=== PATIENT | female | born 2005 | race Caucasian/White ===

== ENCOUNTER 2024-08-03 17:51 | Emergency (ER) | payer OTHER, SELFPAY ==
--- OUTSIDE RECORDS SUMMARY | 2024-08-03 17:53 | XMS_ITS | Encounter Summary ---
Author Organization [facility] and [facility] Address [address] [place] [address] Care Team Providers Care Rides Supervisor Name Role Phone Establish, Need To MD Primary Care Provider [phone]- [phone] Encounter Details Date Type Department Care Team (Late st Contact Info) Description 06/22/2024 Interface Meds [place] - Ophthalmology [address] [place] [address] Jaci Heller MD [facility] [place] [address] Social History Tobacco Use Types Packs/Day Years Used Date Smoking Tobacco: Never Smokeless Tobacco: Never Comments No Sex and Gender Information Value Date Recorded Sex Assigned at Not on file Legal Sex Female 11:14 AM CDT Gender Identity Not on file Sexual Orientation Not on file documented as of this encounter Plan of Treatment Upcoming Encounters Date Type Department Care Team (Late st Contact Info) Description 08/12/2024 7:00 AM DOUGH PANNER Office Visit [place] - Social IQ (Social Influence Quotient) Health [address] [place] [address] Dana Arteaga PA-C [facility] [place] [address] 08/17/2024 3:00 PM DOUGH PANNER Office Visit [place] - Ophthalmology [address] [place] [address] Jaci Heller MD [address] [place] [address], [place] [id number] Cary Duarte, OD [address] [place], [place] [phone] Virginia Natarajan, OD [address] [place], [place] [phone] documented as of this encounter Visit Diagnoses Not on filedocumented in this encounter Care Teams Rides Supervisor Relationship Specialty Start Date End Date Establish, Need To, [address] [place], [place] [id number] PCP - General LEGAL INTERN 05/06/24 documented as of this encounter
--- OUTSIDE RECORDS SUMMARY | 2024-08-03 17:53 | XMS_ITS | Clinical Summary ---
Author Organization [facility] and [facility] Address [facility] [place] [address] Care Team Providers Care Shale Processing Technician Name Role Phone Establish, Need To MD Primary Care Provider [phone]- [phone] Source Comments If you need additional information that is not available on Care Everywhere, please contact our Medical Records Department during business hours (Saturday - Saturday, 8 am - 5 pm) at . During nonbusiness hours, please contact our Trauma and Emergency Center at .[facility] and [facility] Allergies Active Allergy Reactions Criticality Noted Date Comments Norgestimate-Ethinyl Estradiol Hives High 08/13 Progesterone Hives High 11/30/2022 Medications * Medications may not be up to date as of this document. Always verify current medications with the patient. adapalene 0.3 % (DIFFERIN) 0.3 % gel Apply to the face at bedtime. 04/04/2023 Active dextroamphetami ne-amphetamine (ADDERALL XR) 15 mg extended release capsule Take 1 Capsule (15 mg) by mouth daily Active glycopyrrolate (ROBINUL) 2 mg tablet Take 0.5 Tablets (1 mg) by mouth 2 times daily 07/01/2023 Active spironolactone (ALDACTONE) 100 mg tablet Take 1 Tablet (100 mg) by mouth in the morning. 04/04/2023 Active cephALEXin (KEFLEX) 500 mg capsule Take 1 Capsule (500 mg) by mouth 3 times daily for 10 days 30 Capsule 08/02/2024 Active mupirocin (BACTROBAN) 2 % ointment Apply to skin 2 times daily for 10 days 30 g 08/02/2024 Active Active Problems No known active problems Encounters Date Type Department Care Team Description 08/02/2024 4:01 PM EXTRA GANG SUPERVISOR - 08/02/2024 4:26 PM EXTRA GANG SUPERVISOR Hospital Encounter [place] - Urgent Care [address] [place] [address] Mark Cote MD Discharge Disposition: Discharge Home 08/02/2024 Interface [facility] [address] [place] [address] Listed, Doctor Not 07/30/2024 2:00 PM EXTRA GANG SUPERVISOR Office Visit [place] - Ophthalmology [address] [place] [address] Jaci Heller MD McKuras, Rachel, OD 07/30/2024 Interface Meds [place] - Ophthalmology [address] [place] [address] Jaci Heller MD 07/01/2024 7:00 AM EXTRA GANG SUPERVISOR Office Visit [facility] [employer] [address] [address] Dana Arteaga PA-C Injury of head, subsequent encounter (Primary Dx); Visual disturbances; Post-concussion headache 07/01/2024 Interface [facility] [address] [address] Dana Arteaga PA-C 06/22/2024 1:00 PM EXTRA GANG SUPERVISOR Office Visit [place] - Ophthalmology [address] [place] [address] Jaci Heller MD Reierson, Kristen M, Virginia Nolen, OD 06/22/2024 Interface Meds [place] - Ophthalmology [address] [place] [address] Jaci Heller MD 06/15/2024 7:40 AM EXTRA GANG SUPERVISOR Office Visit [place] - Ophthalmology [address] [place] [address] Emplify, Ip Non-Employed Physician, Virginia Garnett, CANDI 05/20/2024 7:30 AM CDT Office Visit [facility] [employer] [address] [address] Dana Arteaga PA-C Injury of head, subsequent encounter (Primary Dx); Visual disturbances 05/20/2024 Interface [facility] [address] [address] Dana Arteaga PA-C 05/06/2024 1:30 PM CDT Office Visit [facility] [employer] [address] [address] Dana Arteaga PA-C Injury of head, initial encounter (Primary Dx); Dizziness; Nystagmus of right eye 05/06/2024 Interface [facility] [employer] [address] [address] Dana Arteaga PA-C from Last 3 Months Social History Tobacco Use Types Packs/Day Years Used Date Smoking Tobacco: Never Smokeless Tobacco: Never Tobacco Cessation:Counseling Given: Not Answered Comments No Sex and Gender Information Value Date Recorded Sex Assigned at Not on file Legal Sex Female 11:14 AM CDT Gender Identity Not on file Sexual Orientation Not on file Obstetrics History Last Filed Vital Signs Vital Sign Reading Time Taken Comments Blood Pressure 130/91 08/02/2024 4:04 PM EXTRA GANG SUPERVISOR Pulse 100 08/02/2024 4:04 PM EXTRA GANG SUPERVISOR Temperature 37 C (98.6 F) 08/02/2024 4:04 PM EXTRA GANG SUPERVISOR Respiratory Rate 16 08/02/2024 4:04 PM EXTRA GANG SUPERVISOR Oxygen Saturation 97% 08/02/2024 4:04 PM EXTRA GANG SUPERVISOR Inhaled Oxygen Concentration - - Weight - - Height - - Body Mass Index - - Plan of Treatment Upcoming Encounters Date Type Department Care Team (Late st Contact Info) Description 08/12/2024 7:00 AM EXTRA GANG SUPERVISOR Office Visit [facility] [employer] [address] [address] Dana Arteaga PA-C [address] [place], [place] [phone] 08/17/2024 3:00 PM EXTRA GANG SUPERVISOR Office Visit [place] - Ophthalmology [address] [place] [address] Jaci Heller MD [address] [place], [place] [phone] [place] [address] [place] [phone] Virginia Natarajan, OD [facility] [place] [address] Health Maintenance Due Date Last Done Comments CREATININE/EGFR 2003 POTASSIUM 2003 SODIUM 2003 DEPRESSION/ANXIETY PHQ4 2015 CHLAMYDIA SCREEN 2019 CERVICAL CANCER SCREENING 2021 LIPID SCREEN 2021 WELLNESS VISIT 2021 PERTUSSIS 2022 COVID-19 Vaccine ( season) 2024 04/22/2021, 03/25/2021 Influenza Vaccine (#1) 2024 7, 08/04/2016, 06/02/2012, Additional history exists DTaP/Tdap/Td Vaccine (7 - Td or Tdap) 01/04/2025 01/04/2015, 02/23/2008, 06/19/2004, Additional history exists RSV Vaccines (1 - 1-dose 75+ series) 2078 Hepatitis B Vaccine Completed 2003, 2003, 2003 Pneumococcal Vaccine: Pediatrics (0 to 5 Years) and At-Risk Patients (6 to 49 Years) Aged Out 06/19/2004, 2003, 2003, Additional history exists No longer eligible based on patient's age to complete this topic POLIO (IPV) Vaccine Completed 02/23/2008, 2003, 2003, Additional history exists HPV Vaccine Completed 07/09/2017, 12/01/2016 [facility] [employer] WORK[employer] COMPENSATION Care Teams Shale Processing Technician Relationship Specialty Start Date End Date Establish, Need To, [address] [place] [address] PCP - General SHALE MINER BLASTING 05/06/24
--- OUTSIDE RECORDS SUMMARY | 2024-08-03 17:53 | XMS_ITS | Encounter Summary ---
Author Organization [employer] Address [address] [place] [address] Care Team Providers Care Kitchen And Bath Designer Name Role Phone Bernadette Ridley APRN, CNP Primary Care Provider + Reason for Visit * Reason Onset Date Comments Refill 07/04/2024 amphetamine-dext roamphetamine XR (ADDERALL XR) 15 MG 24 hour release capsule Encounter Details Date Type Department Care Team (Late st Contact Info) Description 07/04/[address] Medicine [id number] [place] [phone] Bernadette Ridley APRN, DONNA [address] [place] [address] Refill (amphetamine-dextroamphe tamine XR (ADDERALL XR) 15 MG 24 hour release capsule) Social History Tobacco Use Types Packs/Day Years Used Date Smoking Tobacco: Never Passive Smoke Exposure: Never Smokeless Tobacco: Never Alcohol Use Standard Drinks/Week Comments Not Currently 2 (1 standard drink = 0.6 oz pur e alcohol) AUDIT-C Answer Date Recorded Q1: How often do you have a drink containing alc ohol? Never 05/12/2020 Average Number of Drinks Not on file 020 Frequency of Binge Drinking Not on file 04/28 PHQ-2 Answer Date Recorded PHQ-2 Score 0 03/12/2024 Hunger Vital Sign Answer Date Recorded Within the past 12 months, y ou worried that your food would run out before you got the money to buy more. Never true 03/12/20 24 Within the past 12 months, t he food you bought just didn't last and you didn't have money to get more. Never true 03/12/2024 PRAPARE - Transportation Answer Date Re corded In the past 12 months, has l ack of transportation kept you from medical appointments or from getting medications? No 02/26 In the past 12 months, has l ack of transportation kept you from meetings, work, or from getting things needed for daily living? No 03/12/2024 Housing Stability Vital Sign Answer Antolin e Recorded In the last 12 months, was t here a time when you were not able to pay the mortgage or rent on time? No 03/12/2024 In the past 12 months, how m any times have you moved where you were living? 0 03/12/2024 At any time in the past 12 m [facility], were you homeless or living in a mcfp (including now)? No 03/12/2024 Sex and Gender Information Value Date Recorded Sex Assigned at Not on file Gender Identity Not on file Sexual Orientation Not on file documented as of this encounter Nursing Notes * Shweta Hedrick - 07/06/2024 9:37 AM CST Medication Refill - Due for Visit Refill was approved for 30 day supply and patient is due to be seen in the next 30 days. Called patient, was: Successful in reaching patient: We recently received a refill request for one of your medications. To continue managing your medication refills, your clinician would like to see you for a(n): Patient is due for: Video/Office Visit Patient scheduled appointment on: 07/16/24 Frontline Action: Close encounter. Refill has already been approved. OR SALES OPERATIONS MANAGER * Bernadette Ridley APRN, LAW WRITER - 07/06/2024 7:54 AM CST A one-month supply of Adderall was refilled. * ArcadioByron arshad X[facility] - 07/04/2024 10:42 AM CST amphetamine-dextroamphetamine XR (ADDERALL XR) 15 MG 24 hour release capsule Medication started: 10/16/2022 Last ordered by BERNADETTE RIDLEY: 05/11/2024 (54 days ago) QTY: 30, Refills: 0, Sig: take 1 capsule (15 mg) by mouth daily for 30 days. 3 of 3 do not start before may 11, 2024. (changed) -> The requested strength (3.75-3.75-3.75-3.75 mg extended release oral capsule) was last ordered on 05/11/2024. The patient is taking 2.5-2.5-2.5-2.5 mg extended release oral capsule as of 03/07/2024. -> The most recent order on 06/10/2024. -> Unable to determine if sig has changed, review required. -> Medication cannot be delegated. Last qualifying visit: 03/12/2024 (with BERNADETTE RIDLEY) Next scheduled visit: 07/16/2024 (with BERNADETTE RIDLEY) [employer] Embedded Refills, Reference: [id number], 07/04/2024 10:42:32 AM Tin CANALES: YASMIN Refill Centralized Services - Primary Care [[id number]] ([id number]) OR SALES OPERATIONS MANAGER * Jadiel Refillwizard Xrwcomm - 07/04/2024 10:42 AM CST No Careplan note found by [facility]. OR SALES OPERATIONS MANAGER * Romina Corbin - 07/04/2024 10:41 AM CST Medications - Refill Request Name of prescribing clinician: Bernadette Ridley APRN, LAW WRITER Additional comments (related to the above concern): Pt is out of medication. For this refill, patient would like it filled at the pharmacy listed in Medication Management. If there are questions regarding your request, what is your preferred method of communication? Phone Call. Is it okay to leave a detailed message on your voicemail? Yes Is there anything else I can help you with today? OR SALES OPERATIONS MANAGER documented in this encounter Plan of Treatment Not on file documented as of this encounter Visit Diagnoses Diagnosis ADD (attention deficit disorder) without hyperactivity Attention deficit disorder without mention of hyperactivity documented in this encounter Care Teams Kitchen And Bath Designer Relationship Specialty Start Date End Date Bernadette Ridley APRN, LAW WRITER [address] [place] [address] PCP - General Nurse Practitioner 10/09/22 documented as of this encounter
--- OUTSIDE RECORDS SUMMARY | 2024-08-03 17:53 | XMS_ITS | Encounter Summary ---
Author Organization [employer] [facility] Address [address] [place] [address] Care Team Providers Care Beehive Kiln Supervisor Name Role Phone Establish, Need To MD Primary Care Provider [phone] Encounter Details Date Type Department Care Team (Late st Contact Info) Description 08/02/2024 Interface Meds [facility] [address] [place] [address] Listed, [place] [address] Social History Tobacco Use Types Packs/Day Years [...] st Contact Info) Description 08/12/2024 7:00 AM ADJUNCT TEACHER Office Visit [place] - Occupational Health [address] [place] [address] Dana Arteaga, PA-C [facility] [place] [address] 08/17/2024 3:00 PM ADJUNCT TEACHER Office Visit [place] - Ophthalmology [address] [place] [address] Jaci Heller MD [address] [place] [address] Cary Duarte OD [address] [place] [address] Virginia Natarajan, OD [address] [place], [place] [phone] documented as of this encounter Visit Diagnoses Not on filedocumented in this encounter Care Teams Beehive Kiln Supervisor Relationship Specialty Start Date End Date Establish, Need To, [address] [place], [place] [phone] PCP - General MANAGER OF ENVIRONMENTAL SERVICES 05/06/24 documented as of this encounter
--- OUTSIDE RECORDS SUMMARY | 2024-08-03 17:53 | XMS_ITS | Encounter Summary ---
Author Organization [facility] Address [address] [place] [address] Care Team Providers Care Arc Trimmer Name Role Phone Bernadette Ridley APRN, CNP Primary Care Provider + Reason for Visit * Reason Onset Date Comments Video Visit 07/16/2024 Encounter Details Date Type Department Care Team (Latest Contact Info) Description 07/16/2024 9:00 AM [facility] Telemedicine [place] [address] [place] [address] [place] [phone] Bernadette Ridley APRN, CNP [address] [place] [address] ADD (attention deficit disorder) without hyperactivity (Primary Dx) Social History Tobacco Use Types Packs/Day Years [...] any time in the past 12 m [facility], were you homeless or living in a alf (including now)? No 03/12/2024 Sex and Gender Information Value Date Recorded Sex Assigned at Not on file Gender Identity Not on file Sexual Orientation Not on file documented as of this encounter Progress Notes * Bernadette Ridley, STAPLER HAND, CLINICAL STATISTICS MANAGER - 07/16/2024 9:00 AM CST Subjective: Today's visit with Meenakshi was conducted as a scheduled video visit for follow-up ADHD. She has been taking Adderall for a number of years. The dose was increased from 10 mg to 15 mg in February. She is happy with the dose. She no longer has an afternoon crash and it is helping her complete her school work. She has no side effects including increased anxiety, insomnia, palpitations, or reduced appetit e. Objective: There were no vitals taken for this visit. We are unable to connect via video so a phone visit was done. Assessment/Plan: ADD (attention deficit disorder) without hyperactivity Adderall refilled at current dosage. She will call or send a Epuls message in 3 months for an additional three-month supply. Follow-up visit required in 6 months for ongoing refills. - amphetamine-dextroamphetamine XR (ADDERALL XR) 15 MG 24 hour release capsule; Take 1 Capsule (15 mg) by mouth daily for 30 days. 1 of 3 Do not start before August 05, 2024. - amphetamine-dextroamphetamine XR (ADDERALL XR) 15 MG 24 hour release capsule; Take 1 Capsule (15 mg) by mouth daily for 30 days. 2 of 3 Do not start before September 04, 2024. - amphetamine-dextroamphetamine XR (ADDERALL XR) 15 MG 24 hour release capsule; Take 1 Capsule (15 mg) by mouth daily for 30 days. 3 of 3 Do not start before October 04, 2024. Bernadette Ridley APRN, DONNA RVISOR GRINDING documented in this encounter Plan of Treatment Not on file documented as of this encounter Visit Diagnoses Diagnosis ADD (attention deficit disorder) without hyperactivity- Primary Attention deficit disorder without mention of hyperactivity documented in this encounter Care Teams Arc Trimmer Relationship Specialty Start Date End Date Bernadette Ridley APRN, CLINICAL STATISTICS MANAGER [address] [place] [address] PCP - General Nurse Practitioner 10/09/22 documented as of this encounter
--- OUTSIDE RECORDS SUMMARY | 2024-08-03 17:53 | XMS_ITS | Encounter Summary ---
Author Organization [facility] and [facility] Address [facility] [place] [phone] Care Team Providers Care Trade Manager Name Role Phone Establish, Need To MD Primary Care Provider [phone]- [phone] Reason for Visit * Reason Comments Skin Problem Pt presents with com plaints of skin problem/draining lesions noted throughout body, progressively worse x 3 days Encounter Details Date Type Department Care Team (Latest Contact Info) Description 08/02/2024 4:01 PM SUIT MAKER - 08/02/2024 4:26 PM SUIT MAKER Hospital Encounter [place] - Urgent Care [address] [place] [address] Mark Cote MD [address] [place] [address] Discharge Disposition: Discharge Home Social History Tobacco Use Types Packs/Day Years Used Date Smoking Tobacco: Never Smokeless Tobacco: Never Comments No Sex and Gender Information Value Date Recorded Sex Assigned at Not on file Legal Sex Female 11:14 AM CDT Gender Identity Not on file Sexual Orientation Not on file documented as of this encounter Last Filed Vital Signs Vital Sign Reading Time Taken Comments Blood Pressure 130/91 08/02/2024 4:04 PM SUIT MAKER Pulse 100 08/02/2024 4:04 PM SUIT MAKER Temperature 37 C (98.6 F) 08/02/2024 4:04 PM SUIT MAKER Respiratory Rate 16 08/02/2024 4:04 PM SUIT MAKER Oxygen Saturation 97% 08/02/2024 4:04 PM SUIT MAKER Inhaled Oxygen Concentration - - Weight - - Height - - Body Mass Index - - documented in this encounter Discharge Instructions * Attachments The following attachments cannot be sent through Care Everywhere. * Adult Advisor: Folliculitis (Finnish) documented in this encounter Medications at Time of Discharge adapalene 0.3 % (DIFFERIN) 0.3 % gel Apply to the face at bedtime. 04/04/2023 cephALEXin (KEFLEX) 500 mg capsule Take 1 Capsule (500 mg) by mouth 3 times daily for 10 days 30 Capsule 08/02/2024 08/12/2024 dextroamphetamine -amphetamine (ADDERALL XR) 15 mg extended release capsule Take 1 Capsule (15 mg) by mouth daily glycopyrrolate (ROBINUL) 2 mg tablet Take 0.5 Tablets (1 mg) by mouth 2 times daily 07/01/2023 mupirocin (BACTROBAN) 2 % ointment Apply to skin 2 times daily for 10 days 30 g 08/02/2024 08/12/2024 spironolactone (ALDACTONE) 100 mg tablet Take 1 Tablet (100 mg) by mouth in the morning. 04/04/2023 documented as of this encounter Ordered Prescriptions Prescription Sig Dispense Quantity Refills Last Filled Start Date End Date mupirocin (BACTROBAN) 2 % ointment Apply to skin 2 times daily for 10 days 30 g 08/02/2024 5 cephALEXin (KEFLEX) 500 mg capsule Take 1 Capsule (500 mg) by mouth 3 times daily for 10 days 30 Capsule 08/02/2024 5 documented in this encounter Discharge Disposition Disposition Code Departure Means Destination Discharge Home documented in this encounter ED Notes * Mark Cote MD - 08/02/2024 3:57 PM CST Lucy Valencia [phone] Assessment & ED/UC Department Course Final diagnoses: [L73.9] Folliculitis I believe this is a folliculitis. I treated her with Keflex 5 mg 3 times a day for 10 days along with topical Bactroban. She wondered about chickenpox but I do not think that is the case. There are no clear vesicles but rather more purulent vesicles. She also has had chickenpox at age 2 making a recurrence unlikely. If there is slow steady resolution no follow-up is needed but if she worsens she will return Disposition: Discharged Follow-up Appointment/Instructions/Discharge Medication Summary No follow up. Medications At Discharge Start Taking cephALEXin 500 mg capsule Commonly known as: KEFLEX 500 mg, Oral, 3 TIMES DAILY mupirocin 2 % ointment Commonly known as: BACTROBAN Topical, 2 TIMES DAILY History of Present Illness Lucy is a 19-year-old who presents today for evaluation of a rash. She has a red pustular rash that started on her face and scalp and nose extending to her back chest and abdomen. It is fairly itchy and she is taking antihistamines. They have pustules overlying and she drained some weight material from them. She is not systemically ill with a fever or chills. Relevant ROS are documented within the HPI above. Physical Exam Initial Vital Signs Repeat (last) Vital Signs BP: 130/91 Pulse : 100 Temp: 37 ??C (98.6 ??F) Resp Rate: 16 O2 Sat (%): 97 % . Physical Exam Vitals and nursing note reviewed. Constitutional: Appearance: Normal appearance. Skin: Comments: Skin exam shows erythema with white pustules overlying many of the lesions on the scalp neck chest abdomen and back most consistent with folliculitis Neurological: Mental Status: She is alert. Procedure E / M Documentation Medical Decision Making No orders to display Labs Reviewed - No data to display MAKER documented in this encounter Plan of Treatment Upcoming Encounters Date Type Department Care Team (Late st Contact Info) Description 08/12/2024 7:00 AM SUIT MAKER Office Visit [place] - Occupational Health [address] [place] [address] Dana Arteaga PA-C [address] [place] [address] 08/17/2024 3:00 PM SUIT MAKER Office Visit [place] - Ophthalmology [address] [place], [place] [phone] aJci Heller MD [address] [place] [phone] Cary Duarte, OD [address] [place] [address] Virginia Natarajan, OD [address] [place] [address] documented as of this encounter Visit Diagnoses Diagnosis Folliculitis- Primary Other specified disease of hair and hair follicles documented in this encounter Care Teams Trade Manager Relationship Specialty Start Date End Date Establish, Need To, [address] [place] [address] PCP - General FINAL FINISHER 05/06/24 documented as of this encounter
--- OUTSIDE RECORDS SUMMARY | 2024-08-03 17:53 | XMS_ITS | Encounter Summary ---
Author Organization [employer] [facility] Address [facility] [place] [address] Care Team Providers Care Health Club Manager Name Role Phone Establish, Need To MD Primary Care Provider [phone] Reason for Visit * Reason Comments Work Comp Re-check Encounter Details Date Type Department Care Team (Late st Contact Info) Description 07/01/2024 7:00 AM MOLD PRESS OPERATOR Office Visit [address] [address] Dana Arteaga PA-C [address] [place] [address] Injury of head, subsequent encounter (Primary Dx); Visual disturbances; Post-concussion headache Social History Tobacco Use Types Packs/Day Years Used Date Smoking Tobacco: Never Smokeless Tobacco: Never Comments No Sex and Gender Information Value Date Recorded Sex Assigned at Not on file Legal Sex Female 11:14 AM CDT Gender Identity Not on file Sexual Orientation Not on file documented as of this encounter Progress Notes * Dana Arteaga PA-C - 07/01/2024 7:00 AM CST Lucy Valencia [phone] OCCUPATIONAL MEDICINE - [place] July 01, 2024 Subjective Lucy Valencia is a 19 y.o. female. Chief Complaint Patient presents with Work Comp Re-check HPI Employer: [employer] On 04/24/2024 she was unloading the truck early in the morning. She was in the back of the truck where the lighting was minimal. When she turned around a large box fell from the top shelf and hit her in the back of the head. The box hit hard enough that it knocked her glasses off of her face. She states that she went out of the truck but continued to work. As the days went on, she started to develop headaches. She states that she rarely ever gets headaches. The headaches became miserable and so went to urgent care on 05/01/2024. A head CT scan was done which was negative for bleed. SINCE THE LAST VISIT: She notes that her headaches are improving. She has days without headaches. Concentration and fatigue are slowly improving. She was seen in TBI optometry and was noted to have accommodative insufficiency, saccadic deficiency, pursuit deficiency. She has started vision therapy x 1 and has home vision exercises to do. She states that the dizziness is only with sudden position change but feels that it is slowly improving. She states that she finally feels that she is starting to feel better. No past medical history on file. Current Medications Medication Sig adapalene 0.3 % (DIFFERIN) 0.3 % gel Apply to the face at bedtime. dextroamphetamine-amphetamine (ADDERALL XR) 15 mg extended release capsule Take 1 Capsule (15 mg) by mouth daily glycopyrrolate (ROBINUL) 2 mg tablet Take 0.5 Tablets (1 mg) by mouth 2 times daily spironolactone (ALDACTONE) 100 mg tablet Take 1 Tablet (100 mg) by mouth in the morning. Allergies Allergen Reactions Norgestimate-Ethinyl Estradiol Hives Progesterone Hives Social History Socioeconomic History Marital status: Single Spouse name: Not on file Number of children: Not on file Years of education: Not on file Highest education level: Not on file Occupational History Not on file Tobacco Use Smoking status: Never Smokeless tobacco: Never Vaping Use Vaping status: Never Used Substance and Sexual Activity Alcohol use: Not on file Drug use: Not on file Review of Systems Constitutional: Positive for fatigue. HENT: Negative for ear discharge, ear pain, hearing loss and tinnitus. Eyes: Positive for visual disturbance. Negative for photophobia and pain. Gastrointestinal: Negative for nausea and vomiting. Musculoskeletal: Negative for back pain, neck pain and neck stiffness. Skin: Negative for wound. Neurological: Positive for headaches. Negative for dizziness, syncope and light-headedness. Psychiatric/Behavioral: Positive for decreased concentration. Negative for sleep disturbance. The patient is not nervous/anxious. Objective Vital signs: There were no vitals taken for this visit. Physical Exam General appearance: alert, cooperative, no distress Head: normocephalic, without obvious abnormality, atraumatic Eyes: PERRL, extraocular movements intact, Assessment and Plan: Assessment 1. Injury of head, subsequent encounter 2. Visual disturbances 3. Post-concussion headache Continue with vision therapy as scheduled as well as home exercises Continue with good sleep hygiene / proper diet/ hydration / limit caffeine and alcohol. OTC ibuprofen / acetaminophen as needed for headache. Return to work with the following restrictions: no lift > 20-25#, no climb ( may use a one step step stool), slow position changes. A work status form is completed and she is given a copy. Follow up in one month Total Time on encounter: 30 minutes were spent on one or more of the following: discussion with patient, history, exam, coordinating care, treatment goals, record review, documenting clinical information, and/or data review. This evaluation was performed under the direct supervision of Dr. Lizama who was available for consult. Dana Arteaga PA-C PRESS OPERATOR documented in this encounter Plan of Treatment Upcoming Encounters Date Type Department Care Team (Late st Contact Info) Description 08/12/2024 7:00 AM MOLD PRESS OPERATOR Office Visit [facility] [address] [place] [address] Dana Arteaga PA-C [address] [place] [address] 08/17/2024 3:00 PM MOLD PRESS OPERATOR Office Visit [facility] - Ophthalmology [address] [place] [address] Jaci Heller MD [address] [place] [address] Cary Duarte OD [address] [place] [address] Virginia Natarajan, OD [address] [place], [place] [id number] documented as of this encounter Visit Diagnoses Diagnosis Injury of head, subsequent encounter- Primary Visual disturbances Unspecified visual disturbance Post-concussion headache Post-traumatic headache, unspecified documented in this encounter Care Teams Health Club Manager Relationship Specialty Start Date End Date Establish, Need To, [address] [place] [address] PCP - General MARINE ENGINEERING CONSULTANT 05/06/24 documented as of this encounter
--- OUTSIDE RECORDS SUMMARY | 2024-08-03 17:53 | XMS_ITS | Encounter Summary ---
Author Organization [facility] Address [address], [place] [address] Care Team Providers Care Harp Repairer Name Role Phone Bernadette Ridley APRN, CNP Primary Care Provider + Encounter Details Date Type Department Care Team (Late st Contact Info) Description 05/25/2024 E-Visit [facility] - Dermatology [address] [place], [place] [id number] [place] [address] Social History Tobacco Use Types Packs/Day Years [...] any time in the past [address] [facility], were you homeless or living in a retirement (including now)? No 03/12/2024 Sex and Gender Information Value Date Recorded Sex Assigned at Not on file Gender Identity Not on file Sexual Orientation Not on file documented as of this encounter Plan of Treatment Not on file documented as of this encounter Visit Diagnoses Not on filedocumented in this encounter Care Teams Harp Repairer Relationship Specialty Start Date End Date Bernadette Ridley, MEAT APPRENTICE, MOVIE OPERATOR [address] [place] [address] PCP - General Nurse Practitioner 10/09/22 documented as of this encounter
--- OUTSIDE RECORDS SUMMARY | 2024-08-03 17:53 | XMS_ITS | Encounter Summary ---
Author Organization [facility] Address [address] [place] [address] Care Team Providers Care Unstacker Name Role Phone Establish, Need To MD Primary Care Provider [phone] [phone] Encounter Details Date Type Department Care Team (Late st Contact Info) Description 06/22/2024 1:00 PM PAINTER STRUCTURAL STEEL Office Visit [facility] - Ophthalmology [address] [place] [address] Jaci Heller MD [address] [place] [address] Jaye Duarte, OD [address] [place] [address] Virginia Natarajan, OD [address] [place] [address] Social History Tobacco Use Types Packs/Day Years Used Date Smoking Tobacco: Never Smokeless Tobacco: Never Comments No Sex and Gender Information Value Date Recorded Sex Assigned at Not on file Legal Sex Female 11:14 AM CDT Gender Identity Not on file Sexual Orientation Not on file documented as of this encounter Progress Notes * Virginia Natarajan, OD - 06/22/2024 1:00 PM CST Lucy Valencia [id number] [place] [facility] [place] June 22, 2024 Visit Number: 1 Ocular Deficiencies and Treatment Plan: Accommodative insufficiency, saccadic deficiency, pursuit deficiency Animal Control Specialist Goals: Lessen symptoms associated with TBI. Lucy reports their visual function and concurrent health-related quality of life difficulties secondary to concussion related diagnosis are stable. Current At Home Therapy: None- first therapy visit Baseline Testing Reports: Initial BIVSS Score: 53 (Date: 06/15/2024) Therapy Performed in Office Today: Lens flippers: Monocular: (-) lenses harder; up to +/-2.50 flippers each eye; harder over time Binocular: (-) lenses harder, got up to +/- 2.00 flipper but failed to sustain; +/-1.75 last able to sustain Sanet Saccades 1: Time 1: 88 sec, misses 1 Time 2: 68 sec; misses 1 [place] tracking: Time 1: 1 min 11 sec, 0 mistake Time 2: 1 min 4 sec, 0 mistake Time 3: 57 sec, 1 mistake At Home Therapy Assigned at Today's Visit 1. Pencil push ups- accommodative focus 2. Two column/row saccades 3. Lazy 8 pursuits 4. Near/far Guido Charts IMPRESSON: 1. Traumatic brain injury, without loss of consciousness, sequela (*) 2. 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 Recommend patient continues with neuro ocular therapy. Discussed that she is likely to get the best benefit from doing therapy by performing at home activities for about 20 minutes for about 5 days a week. Patient can MyChart message me if she finds the activities for at home to be too challenging, too easily, or she needs additional activities. Lucy Valencia and I talked about how the goal of therapy is to improve symptoms but that complete resolution of symptoms may not be attainable. We did talk about the endpoint of therapy being when they no longer feel that we're making improvements, I am no longer seeing improvements, or when they have complete symptom relief. We agreed that we would meet every one to two weeks for the first 3 months then do a re-evaluation to determine if further therapy is necessary. In the absence of problems, return in 2-3 weeks (she is a college student) for repeat rehabilitation visit during the window of treatment (3 months- then repeat right eye/ BIVSS/ DEM) Total Time on encounter: 60 minutes was spent reviewing goals/progress, performing therapy and assigning at home therapy plan. [place] Natarajan OD [place] License #: [id number] TER STRUCTURAL STEEL * Jaye Duarte, CANDI - 06/22/2024 1:00 PM CST I have reviewed the resident's chart, assessment, and plan and I agree with the resident's assessment and plan. JAYE DUARTE OD License #: [id number]: [id number] License # [id number] TER STRUCTURAL STEEL documented in this encounter Plan of Treatment Upcoming Encounters Date Type Department Care Team (Late st Contact Info) Description 08/12/2024 7:00 AM PAINTER STRUCTURAL STEEL Office Visit [address] [address] Dana Arteaga PAMichaelC [address] [place] [address] 08/17/2024 3:00 PM PAINTER STRUCTURAL STEEL Office Visit [facility] - Op[facility] [address] [place] [address] Jaci Heller MD [address] [place] [address] Jaye Duarte OD [address] [place] [address] Virginia Natarajan, CANDI [address] [place] [address] documented as of this encounter Visit Diagnoses Diagnosis Traumatic brain injury, without loss of consciousness, sequela (*)- Primary Accommodative insufficiency Presbyopia Saccadic deficiency Deficiencies of saccadic eye movements Deficient smooth pursuit eye movements documented in this encounter Care Teams Unstacker Relationship Specialty Start Date End Date Establish, Need To, [address] [facility] [place] [address] PCP - General SENIOR COGNOS DEVELOPER 05/06/24 documented as of this encounter
--- OUTSIDE RECORDS SUMMARY | 2024-08-03 17:53 | XMS_ITS | Encounter Summary ---
Author Organization [facility] [employer] [facility] Address [address] [place] [address] Care Team Providers Care Trials Manager Name Role Phone Establish, Need To MD Primary Care Provider [phone]- [phone] Encounter Details Date Type Department Care Team (Late st Contact Info) Description 07/30/2024 Interface [facility] - Ophthalmology [address] [place] [address] Jaci Heller MD [facility] [place] [address] Social History Tobacco Use Types Packs/Day Years [...] st Contact Info) Description 08/12/2024 7:00 AM SIDING INSTALLER Office Visit [facility] [address] [place] [address] Dana Arteaga PA-C [facility] [place] [address] 08/17/2024 3:00 PM SIDING INSTALLER Office Visit [facility] [address] [place] [address] Jaci Heller MD [address] [place] [address], [place] [phone] Cary Duarte, OD [address] [place], [place] [phone] Virginia Natarajan, OD [address] [place], [place] [phone] documented as of this encounter Visit Diagnoses Not on filedocumented in this encounter Care Teams Trials Manager Relationship Specialty Start Date End Date Establish, Need To, [address] [place], [place] [phone] PCP - General INSTRUMENT LENS GRINDER APPRENTICE 05/06/24 documented as of this encounter
--- OUTSIDE RECORDS SUMMARY | 2024-08-03 17:53 | XMS_ITS | Encounter Summary ---
Author Organization [employer] [facility] Address [address] [place] [address] Care Team Providers Care Quality Assurance Advisor Name Role Phone Establish, Need To MD Primary Care Provider [phone]- [phone] Encounter Details Date Type Department Care Team (Late st Contact Info) Description 07/01/2024 Interface [facility] [address] [place] [address] Dana Arteaga, PA-C [address] [place] [address] Social History Tobacco Use Types Packs/Day Years [...] st Contact Info) Description 08/12/2024 7:00 AM SCRIP CLERK Office Visit [facility] [address] [place] [address] Dana Arteaga, PA-C [address] [place] [address] 08/17/2024 3:00 PM SCRIP CLERK Office Visit [facility] - Ophthalmology [address] [place] [address] Jaci Heller MD [address] [place] [address] Cary Duarte, OD [address] [place] [address] Virginia Natarajan, CANDI [address] [place] [address] documented as of this encounter Visit Diagnoses Not on filedocumented in this encounter Care Teams Quality Assurance Advisor Relationship Specialty Start Date End Date Establish, Need To, [address] [place], [place] [phone] PCP - General BRUSH HOLDER INSPECTOR 05/06/24 documented as of this encounter
--- OUTSIDE RECORDS SUMMARY | 2024-08-03 17:53 | XMS_ITS | Clinical Summary ---
[facility] Organization [facility] Address [address], [place] [address] Care Team Providers Care Food Checkers And Cashiers Supervisor Name Role Phone Bernadette Ridley APRN, ART HANDLER Primary Care Provider + Source Comments You are receiving this document as you are listed as the primary care provider,follow-up provider, or the patient has been referred to you for consultation.This is in compliance with the Medicare and[facility] EHR Incentive Program,which states Providers who transition their patient to another setting of careor provider of care or refers their patient to another provider of care shouldprovide summary care record for each transition of care or referral. Nestio Allergies Active Allergy Reactions Criticality Noted Date Comments Norgestimate-Eth Estradiol Hives High 0 Progesterone Hives High 11/30/2022 Medications Medication Sig Dispensed Refills Start Date End Date Status adapalene (DIFFERIN) 0.3 % gelIndications:Acn e vulgaris Apply to the face at bedtime. 45 g 5 05/27/2024 Active spironolactone (ALDACTONE) 100 MG tabletIndications: Acne vulgaris Take one tablet every morning. 90 Tablet 3 05/27/2024 Active glycopyrrolate (ROBINUL) 2 MG tabletIndications: Hyperhidrosis Take 1 tablet (2 mg total) by mouth 2 (two) times a day for sweating. 180 Tablet 3 05/27/2024 Active amphetamine-dextro amphetamine XR (ADDERALL XR) 15 MG 24 hour release capsuleIndications :ADD (attention deficit disorder) without hyperactivity Take 1 Capsule (15 mg) by mouth daily for 30 days. 1 of 3 30 Capsule 07/06/2024 5 Active amphetamine-dextro amphetamine XR (ADDERALL XR) 15 MG 24 hour release capsuleIndications :ADD (attention deficit disorder) without hyperactivity Take 1 Capsule (15 mg) by mouth daily for 30 days. 1 of 3 Do not start before August 05, 2024. 30 Capsule 08/05/2024 5 Active amphetamine-dextro amphetamine XR (ADDERALL XR) 15 MG 24 hour release capsuleIndications :ADD (attention deficit disorder) without hyperactivity Take 1 Capsule (15 mg) by mouth daily for 30 days. 2 of 3 Do not start before September 04, 2024. 30 Capsule 09/04/2024 5 Active amphetamine-dextro amphetamine XR (ADDERALL XR) 15 MG 24 hour release capsuleIndications :ADD (attention deficit disorder) without hyperactivity Take 1 Capsule (15 mg) by mouth daily for 30 days. 3 of 3 Do not start before October 04, 2024. 30 Capsule 10/04/2024 5 Active amphetamine-dextro amphetamine XR (ADDERALL XR) 15 MG 24 hour release capsuleIndications :ADD (attention deficit disorder) without hyperactivity Take 1 Capsule (15 mg) by mouth daily for 30 days. 2 of 3 Do not start before April 11, 2024. 30 Capsule 04/11/2024 4 Discontinued amphetamine-dextro amphetamine XR (ADDERALL XR) 15 MG 24 hour release capsuleIndications :ADD (attention deficit disorder) without hyperactivity Take 1 Capsule (15 mg) by mouth daily for 30 days. 3 of 3 Do not start before May 11, 2024. 30 Capsule 05/11/2024 4 Discontinued Active Problems Problem Noted Date Diagnosed Date Controlled substance agreement signed 11/12/2022 Overview (11/12/2022): Diagnosis: ADD Medication: Adderall XR 10 mg daily Controlled Substance Agreement reviewed and signed: yes Date agreement signed: 11/12/2022 Refill plan: 3-month supply, visits required every 6 months for ongoing refills. 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 Resolved Problems Problem Noted Date Diagnosed Date Resolved Date Adjustment reaction 05/22/2011 12/02/19 17 Overview (03/20/2017): Unspecified adjustment reaction Supracondylar fracture of humerus, closed 03/29/2011 12/01/2016 Disturbance of conduct 02/07/201112/01 Overview (03/20/2017): Unspecified disturbance of conduct Undiagnosed cardiac murmurs 11/06/2006 12/01/2016 Overview (03/20/2017): Murmur Innocent Constipation 11/06/2006 12/01/2016 Overview (03/20/2017): Constipation NOS Varicella 04/25/2005 06/25/2005 Overview (03/20/2017): LW Modifier: December 2004 ; Varicella Zoster Encounters Date Type Department Care Team Description 07/16/2024 9:00 AM [employer] Telemedicine [address] [phone] Bernadette Ridley APRN, CNP ADD (attention deficit disorder) without hyperactivity (Primary Dx) 07/04/[address] [phone] Bernadette Ridley APRN, CNP Refill (amphetamine-dextroamp hetamine XR (ADDERALL XR) 15 MG 24 hour release capsule) 05/27/2024 8:15 AM CDT Telemedicine - Dermatology [address] [place] [id number] Jennifer Choi MD Hyperhidrosis (Primary Dx); Acne vulgaris 05/25/2024 E-Visit [facility] Dermatology [address] [place] [address] Mycstephaniet, Generic Provider from Last 3 Months Immunizations Name Administration Dates Next Due 9vHPV (Gardasil 9) 07/09/2017,12/01/2016 Chicken Pox - History of Illness 01/10/2005 DTaP 02/23/2008 [id number] (Pediarix) 2003,2003,0 2003 DTaP/Hib 06/19/2004 Flu Vac Preserv Free (3+yrs) 06/02/2012, 07/26/2011,05/23/2011,2008 Flu Vac Preserv Free (6-35 mo) 06/19/2004 HepA Ped/Adol (1-18 yrs) 02/23/2008,11/05/2006 Hib (ActHIB) 2003,2003,2003 IPV (Polio) 02/23/2008 Influenza IIV4 (Quadrivalent ) 0.5mL (53924) 07/09/2017,08/04/2016 MCV4 Menveo 2m.+ (two vial) 04/05/2020, 5 MMR 02/23/2008,02/21/2004 Moderna Monovalent 12+ 04/22/2021,03/25/2021 Pneumococcal 7, PED 06/19/2004, 4,2003,2002 TDAP (BOOSTRIX) 01/04/2015 Family History Medical History Relation Name Comments Diabetes Father Dipak Valencia Hypertension Mother Shannen Valencia add Brother 1 ADD, inattentiv e type Diabetes Maternal Grandfather Cancer, Pancreatic Maternal Grandmother Diabetes Paternal Grandfather Jose Valencia Kidney/Bladder Disease Paternal Grandfather Jose rosario Diabetes Paternal Grandmother Freida May Kidney/Bladder Disease Paternal Grandmother Freida May Amblyopia/Strabismus Negative Family History Anesthesia Reaction Negative Family History Broken Bones Negative Family History Cancer Negative Family History Cataract Negative Family History Clotting Disorder Negative Family History Glaucoma Negative Family History Macular Degeneration Negative Family History Osteoporosis Negative Family History Retinal Detachment Negative Family History Rheumatologic Disease Negative Family History Relation Name Status Comments Father Dipak Valencia Mother Shannen Valencia Brother 1 Alive Brother 2 Alive Brother 3 Alive Maternal Grandfather Alive Maternal Grandmother Paternal Grandfather Jose Valencia Paternal Grandmother Freida May Alive Paternal Uncle Other Social History Tobacco Use Types Packs/Day Years [...] any time in the past 12 m [facility], were you homeless or living in a snf (including now)? No 03/12/2024 Sex and Gender Information Value Date Recorded Sex Assigned at Not on file Gender Identity Not on file Sexual Orientation Not on file Last Filed Vital Signs Vital Sign Reading Time Taken Comments Blood Pressure 103/72 03/12/2024 9:00 AM CDT Pulse 73 03/12/2024 9:00 AM CDT Temperature 36.9 C (98.4 F) 05/12/2020 2:45 PM CDT Respiratory Rate 16 03/12/2024 9:00 AM CDT Oxygen Saturation 99% 05/12/2020 2:45 PM CDT Inhaled Oxygen Concentration - - Weight 95.7 kg (211 lb) 03/12/2024 9:00 AM CDT Height 175.3 cm (5' 9) 03/12/2024 9:00 AM CDT Body Mass Index 31.16 03/12/2024 9:00 AM CDT Plan of Treatment Health Maintenance Due Date Last Done Comments Cervical Cancer Screening Due 2003 Hep C Screening (Preventive Services) 2003 HIV Screening (Preventive Services) 2019 COVID-19 Vaccine ( season) 2024 04/22/2021, 03/25/2021 Influenza (#1) 2024 07/09/2017, 01/2017, 06/02/2012, Additional history exists DTaP/Tdap/Td (7 - Tdap) 01/04/2025 01/05/20 15, 02/23/2008, 06/19/2004, Additional history exists Adult Preventive Visit 03/12/2025 , 12/29/2021, 02/02/2019, Additional history exists Chlamydia 03/12/2025 03/12/2024, 01/27, 12/29/2021 Zoster/Shingles (1 of 2) 2053 HepB Completed 2003, 05/30, 2003 Hib Completed 06/19/2004, 07/30, 2003, Additional history exists Pneumococcal Aged Out 06/19/2004, 07/30, 2003, Additional history exists No longer eligible based on patient's age to complete this topic HepA Completed 02/23/2008, 11/05/2006 IPV (Polio) Completed 02/23/2008, 07/30, 2003, Additional history exists HPV Vaccine Completed 07/09/2017, 12/01/2016 MCV4 Completed 04/05/2020, 01/04/2015 Procedures Procedure Name Priority Date/Time Associated Diagnosis Comments CHLAMYDIA & GC, URINE (14 YEARS AND OLDER) Routine 03/12/2024 10:04 AM CDT Routine screening for STI (sexually transmitted infection) from Last 3 Months or Most Recently Relevant to Health Maintenance Results * Chlamydia & GC, Urine (14 Years and Older) (03/12/2024 10:04 AM CDT) Chlamydia Trachomatis STD Not Detected Not Detected 03/12/2024 9:29 PM CDT [facility] N. gonorrhoeae STD Not Detected Not Detected 03/12/2024 9:29 PM CDT [facility] Urine STD (Urine for STD) Non-blood Collection / Unknown 03/12/2024 10:04 AM CDT 03/12/2024 10:04 AM CDT Narrative [facility] - 03/12/2024 9:29 PM CDT Test performed by Pre Sales Systems Engineer Mediated Amplification (TMA). Bernadette Ridley APRN, CNP LAB_1 Performing Organization Address City/State/[facility] Co de Phone Number [facility] [address] [place] [address], [facility] from Last 3 Months or Most Recently Relevant to Health Maintenance Care Teams Food Checkers And Cashiers Supervisor Relationship Specialty Start Date End Date Bernadette Ridley, LEAF TINNER, ART HANDLER [address] [place] [address] PCP - General Nurse Practitioner 10/09/22
--- OUTSIDE RECORDS SUMMARY | 2024-08-03 17:53 | XMS_ITS | Encounter Summary ---
Author Organization [facility] Address [address] [place] [address] Care Team Providers Care Red Hat Engineer Name Role Phone Establish, Need To MD Primary Care Provider [phone] Encounter Details Date Type Department Care Team (Late st Contact Info) Description 07/30/2024 2:00 PM PARAOPTOMETRIC Office Visit [facility] - Ophthalmology [address] [place] [id number] Jaci Heller MD [address] [place] [phone] Virginia Natarajan, OD [address] [place] [phone] Social History Tobacco Use Types Packs/Day Years Used Date Smoking Tobacco: Never Smokeless Tobacco: Never Comments No Sex and Gender Information Value Date Recorded Sex Assigned at Not on file Legal Sex Female 11:14 AM CDT Gender Identity Not on file Sexual Orientation Not on file documented as of this encounter Progress Notes * Virginia Natarajan, OD - 07/30/2024 2:00 PM CST Lucy Valencia [phone] [facility] [place] July 30, 2024 Visit Number: 2 Ocular Deficiencies and Treatment Plan: Accommodative insufficiency, saccadic deficiency, pursuit deficiency Intermediate Goals: Lessen symptoms associated with TBI Lucy reports their visual function and concurrent health-related quality of life difficulties secondary to concussion related diagnosis are improving. They have been compliant with assigned at home therapy program and feel it is going well. Current At Home Therapy: 1. Pencil push ups- accommodative focus 2. Two column/row saccades 3. Lazy 8 pursuits 4. Near/far Guido Charts Initial BIVSS Score: 53 (Date: 06/15/2024) Therapy Performed in Office Today: Lens flippers: Monocular: Prior max: (-) lenses harder; up to +/-2.50 flippers each eye; harder over time Today's max: +/- 2.50 each eye, little tiring over time but minimal Binocular: Prior max: (-) lenses harder, got up to +/- 2.00 flipper but failed to sustain; +/-1.75 last able to sustain Today's max: +/-2.50 hard to sustain; (-) side harder [place] tracking: Prior best time: 57 sec (1 mistake) Times today: 49 sec (0 mistakes), 40 sec (0 mistakes), 39 sec (0 mistakes) [place] Saccades 1 (30 targets): Prior fastest time: 68 sec (misses 1) Times today: 66 sec (2 misses); 63 sec (0 misses); 70 sec (1 miss) [place]et Rotator 2 (36 targets, speed 15): Times today: 47 sec (3 misses); 35 sec (0 misses); 40 sec (2 misses) Near/far Guido chart: Details: Going through full chart: time 1- 3 min 9 sec (2 mistakes), time 2- 2 min 59 sec (0 mistakes) At Home Therapy Assigned at Today's Visit 1. Pencil push ups- accommodative emphasis 2. Saccadic jump sheet/visual search 3. Pursuit maze 4. Near/far Guido Chart IMPRESSON: 1. Traumatic brain injury, without loss of consciousness, sequela (*) 2. 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 Recommend continuing neuro ocular therapy. Discussed that for best benefit of therapy I recommend to eat about 20 to 30 minutes at least 5 times per week. Lucy Valencia and I talked about how [...] a re-evaluation to determine if further therapy with the next resident is necessary. In the absence of problems, return in 1-3 weeks for repeat rehabilitation visit during the window of treatment (3 months- then repeat right eye/ BIVSS/ DEM) Total Time on encounter: 60 minutes was spent reviewing goals/progress, performing therapy and assigning at home therapy plan. Virginia Natarajan OD [place] License #: [id number] OPTOMETRIC * Marcelina Connor OD - 07/30/2024 2:00 PM CST I agree with the resident's assessment and plan. OPTOMETRIC documented in this encounter Plan of Treatment Upcoming Encounters Date Type Department Care Team (Late st Contact Info) Description 08/12/2024 7:00 AM PARAOPTOMETRIC Office Visit [facility] [address] [place] [phone] Dana Arteaga, PAMichaelC [address] [place] [phone] 08/17/2024 3:00 PM PARAOPTOMETRIC Office Visit [facility] - Ophthalmology [address] [place] [address] Jaci Heller MD [address] [place] [phone] Cary Duarte OD [address] [place] [address] Virginia Natarajan, CANDI [address] [place] [address] documented as of this encounter Visit Diagnoses Diagnosis Traumatic brain injury, without loss of consciousness, sequela (*)- Primary Accommodative insufficiency Presbyopia Saccadic deficiency Deficiencies of saccadic eye movements Deficient smooth pursuit eye movements documented in this encounter Care Teams Red Hat Engineer Relationship Specialty Start Date End Date Establish, Need To, [address] [place] [address] PCP - General LOAN AND CREDIT MANAGER 05/06/24 documented as of this encounter
[2024-08-03 18:51] VITALS: BP 124/84; PULSE 96; RESP 18; TEMP 37.2; O2SAT 99; BMI 28.8
--- NOTE | 2024-08-03 20:55 | ED.GENADULT ---
HPI - General Adult General Date Seen: 08/03/24 Chief complaint: Skin/Abscess/Foreign Body Stated complaint: skin rash is spreading Time Seen by Provider: 08/03/24 20:54 History of Present Illness HPI narrative: 19-year-old female presenting to the emergency room [facility] for rash. She she developed a rash starting on her forehead and it is getting worse and spreading into her scalp. She has been taking Benadryl an allergy pills but they are not helping. She was seen in the urgent care and told she has folliculitis and started on mupirocin and cephalexin. The patient notes that her rash started several days ago, probably last week and started with a few itchy burning lesions on her forehead. Initially they were small she thought they might be pimples. She tried to leave them alone but then they formed and a small white pustules and so she put pimple patches on them. Eventually the pustules broke open and then they were just open lesions that were scab. They been draining a little bit white material. Since then she has also developed multiple small similar lesions under her hair on her scalp. She went to the urgent care couple of days ago and at that time was diagnosed with folliculitis, and was prescribed mupirocin and cephalexin. Since then or possibly a that same day she also started developing similar lesions on her neck, upper back, torso, abdomen. Since then she has also developed lesions on her arms. She has 1 small vesicle on the mucosal surface inside of her mouth on the lower lip. She has not had any fevers. No headache. No other associated symptoms. No change in her voice. No trouble breathing. No cough. No abdominal pain or vomiting. Urination has been normal. Bowel movements are normal. She did have recent travel to [facility] but no other exotic travel. No known exposure to anyone with chickenpox or M pox. She think she probably had chickenpox as a child. Related Data Home Medications ?Medication ?Instructions ?Recorded ?Confirmed adapalene 0.3 % topical gel topical QPM 08/03/24 cephalexin 500 mg capsule 500 mg PO 3XD 08/03/24 08/03/24 dextroamphetamine-amphetamine ER 1 cap PO DAILY 08/03/24 08/03/24 10 mg 24hr capsule,extend release glycopyrrolate 2 mg tablet 2 mg PO BID 08/03/24 08/03/24 mupirocin 2 % topical ointment 1 applic topical BID-TID 08/03/24 08/03/24 spironolactone 100 mg tablet 100 mg PO QAM 08/03/24 08/03/24 Previous Rx's ?Medication ?Instructions ?Recorded prednisone 20 mg tablet 40 mg (2 x 20 mg) PO BID #10 tabs 08/03/24 valacyclovir 1 gram tablet 1,000 mg PO TID #21 tabs 08/03/24 Allergies Allergy/AdvReac Type Severity Reaction Status Date / Time progesterone Allergy Intermediate Verified 08/03/24 18:59 PFSH [facility] Social History Smoking Status: Never smoker How often do you have a drink containing alcohol: never AUDIT-C Alcohol total score: 0 Non-prescribed substance use: denies use Exam Narrative: Exam Narrative: Constitutional: Appears well-developed and well-nourished. Alert. Conversant. Non toxic. HENT: Head: Atraumatic. Nose: Nose normal. Mouth/Throat: Oral mucosa is clear and moist. no trismus. Pharynx normal. Tonsils symmetric. No tonsillar enlargement, erythema, or exudate. Eyes: Conjunctivae normal. EOM normal. Pupils equal, round, and reactive to light. No scleral icterus. Neck: Normal range of motion. Neck supple. No tracheal deviation present. Cardiovascular: Normal rate, regular rhythm. No gallop. No friction rub. No murmur heard. Symmetric radial artery pulses Pulmonary/Chest: Effort normal. No stridor. No respiratory distress. No wheezes. No rales. No rhonchi . No tenderness. Musculoskeletal: RUE: Normal range of motion. No tenderness. No deformity LUE: Normal range of motion. No tenderness. No deformity RLE: Normal range of motion. No edema. No tenderness. No deformity LLE: Normal range of motion. No edema. No tenderness. No deformity Lymph: No cervical adenopathy. Neurological: Alert and oriented to person, place, and time. Normal strength. CN II-VII intact. No sensory deficit. GCS eye subscore is 4. GCS verbal subscore is 5. GCS motor subscore is 6. Normal coordination Skin: The patient a rash affecting her forehead, scalp, posterior and anterior neck, chest, abdomen, back, upper extremities. On her forehead there are 3 discrete round erythematous slightly raised lesions that appear to be de roofed vesicles with central umbilication. On her scalp or multiple similar umbilicated red lesions. There is also a few lesions present with small pustules in place. On her back there is multiple small red lesions. No pustules or blisters. Some appear to be slightly ulcerated in the center and some appear to be just erythematous without any central lesion. She does have 1 small the roof vesicle on the mucosal surface of her left lower lip and 2 small de roofed vesicles on her soft palate. No lesions on her palms. has multiple round erythematous Skin is warm and dry. No pallor. Normal capillary refill. Psychiatric: Normal mood. Normal affect. Const: Vital Signs, click to edit/add: Vital Signs - 24 hr 08/03/24 18:51 08/03/24 20:57 08/03/24 22:30 Temperature 98.9 F Pulse Rate [Pulse Oximeter] 96 101 H 91 Respiratory Rate 18 18 18 Blood Pressure [Ri ght Upper Arm] 124/84 128/112 H 119/86 Pulse Oximetry 99 99 99 Oxygen Delivery Me thod Room Air Room Air Room Air Course Vital Signs Vital signs: Initial Vital Signs Temperature 98.9 F 08/03/24 18:51 Temperature Source Temporal Artery Scan 08/03/24 18:51 Pulse Rate 96 08/03/24 18:51 Respiratory Rate 18 08/03/24 18:51 Blood Pressure 124/84 08/03/24 18:51 Blood Pressure Mean 97 08/03/24 18:51 Blood Pressure Position Sitting 08/03/24 18:51 Pulse Oximetry 99 08/03/24 18:51 Oxygen Delivery Method Room Air 08/03/24 18:51 Vital Signs Temperature 98.9 F 08/03/24 18:51 Pulse Rate 96 08/03/24 18:51 Respiratory Rate 18 08/03/24 18:51 Blood Pressure 124/84 08/03/24 18:51 Pulse Oximetry 99 08/03/24 18:51 Oxygen Delivery Method Room Air 08/03/24 18:51 Temperature 98.9 F 08/03/24 18:51 Pulse Rate 91 08/03/24 22:30 Respiratory Rate 18 08/03/24 22:30 Blood Pressure 119/86 08/03/24 22:30 Pulse Oximetry 99 08/03/24 22:30 Oxygen Delivery Method Room Air 08/03/24 22:30 Medications Administered Medications: Discontinued Medications Generic Name Dose Route Start Last Admin Trade Name Bassem PRN Reason Stop Dose Admin Diphenhydramine HCl 50 mg 08/03/24 21:16 08/03/24 21:31 Diphenhydramine 25 Mg Capsule PO 08/03/24 21:17 50 mg ONCE ONE Administration Prednisone 40 mg 08/03/24 21:16 08/03/24 21:31 Prednisone 20 Mg Tablet PO 08/03/24 21:17 40 mg ONCE ONE Administration Valacyclovir HCl 1,000 mg 08/03/24 21:17 08/03/24 22:25 Valacyclovir Hcl 500 Mg Tablet PO 08/03/24 21:18 1,000 mg ONCE ONE Administration Medical Decision Making [facility] Narrative Medical decision making narrative: Very pleasant 19-year-old female presenting with a itchy , burning rash with multiple small discrete erythematous lesions as started on her forehead and scalp and have now spread to her body including her back, chest, abdomen, upper extremities, neck. She also is a couple of small intraoral lesions. Overall these lesions would be most consistent with probably a viral infection. For instance could be consistent with chickenpox. However she has had chickenpox, she believes, when she was 2. Consider possible disseminated zoster but there is no discrete lesions really to suggest shingles. No fever or other systemic symptoms. She has no recent travel, systemic prodromal illness, or known exposure to anyone with M pox, or any high risk behavior. I reviewed the /[employer] guidelines and she does not have any of the risk factors for M pox testing. Will obtain a swab is check for varicella or herpes viruses. At this point I think it is reasonable for her to discontinue the a previously prescribed mupirocin and cephalexin. This does not appear to be an isolated bacterial cellulitis or folliculitis. Lesions on her scalp are really not coalescing to suggest a kerion. She has no new medications to cause a drug eruptions or Chakraborty-Louie syndrome. She is hemodynamically stable and afebrile. Rash is not consistent with urticaria to suggest allergic reaction or anaphylaxis. Will treat with prednisone and antihistamines to help treat symptomatically. Will start the patient on valacyclovir with suspicion this may be chickenpox or other herpes variant. Discharge Plan Discharge Clinical Impression: Rash Patient Disposition: Home, Self-Care Condition: Stable Instructions: Chickenpox (ED), Acute Rash (ED) Additional Instructions: As we discussed, the cause of your rash is not clear at this time. I suspect the rash is being caused by a viral infection, possibly chickenpox or shingles. Your swab results are not back tonight but will come back in 1 or 2 days. For now we will treat with an antiviral medication called valacyclovir. It is okay to stop taking the a mupirocin cream and the cephalexin antibiotic. To manage the itching and burning we will put you on steroids which will help reduce inflammation. You should also keep taking antihistamines. Take Benadryl 25-50 mg every 6 hours as needed. Benadryl can cause drowsiness. You can add Jennifer (which is a nondrowsy antihistamine) for daytime use. Monitor the rash carefully. If it is getting worse, please come back to the emergency department If the rash is not getting better within 3-4 days, please recheck with your regular doctor or director of vocational guidance. Prescriptions: New valacyclovir 1 gram tablet 1,000 mg PO TID Qty: 21 0RF prednisone 20 mg tablet 40 mg PO BID Qty: 10 0RF No Action spironolactone 100 mg tablet 100 mg PO QAM cephalexin 500 mg capsule 500 mg PO 3XD dextroamphetamine-amphetamine 10 mg capsule,extended release 24hr 1 cap PO DAILY mupirocin 2 % ointment 1 applic topical BID-TID glycopyrrolate 2 mg tablet 2 mg PO BID adapalene 0.3 % gel topical QPM Follow Up/Referrals: Provider,Not a Local [Primary Care Provider] - Stand Alone Forms: [facility] Info Instructions
[2024-08-03 20:57] VITALS: BP 128/112; PULSE 101; RESP 18; O2SAT 99
[2024-08-03] MEDS: predniSONE 20 MG TABLET 40 MG PO (21:31)
[2024-08-03] MEDS: diphenhydrAMINE 25 MG CAPSULE 50 MG PO (21:31)
[2024-08-03] MEDS: VALACYCLOVIR HCL 500 MG TABLET 1000 MG PO (22:25)
[2024-08-03 22:30] VITALS: BP 119/86; PULSE 91; RESP 18; O2SAT 99
[2024-08-07 14:48] LABS: Varicella-Zoster Virus Source Plasma; Varicella-Zoster Virus by PCR Detected
== END 2024-08-03 22:37 | disposition home or self-care (01) ==
LOC: ED 22:15
PROVIDERS: Emergency Provider Emergency Medicine
DX: R21 Rash and other nonspecific skin eruption (principal)
CPT/HCPCS: 36415; 86787; 99282; 99283; 99284; A9270; J7512